=== PATIENT | female | born 2000 | race Caucasian/White ===

== ENCOUNTER 2020-10-15 14:53 | Emergency (ER) | payer OTHER ==
[~2020-10-15 14:53] MED LIST: HYDROXYZINE 10M10 MG PO; NAPROXEN500 MG PO
[2020-10-15 16:11] LABS: BASOPHIL 0.3 % (0-2); EOSINOPHIL 0.6 % (0-5); HGB 13.4 g/dl (12.5-16.0); LYMPHOCYTE 19.7 % (15-48); MCH 30.5 pg (25.0-31.0); MCHC 35.3 g/dL (32.0-36.0); MCV 86.4 fL (78.0-100.0); MONOCYTE 5.9 % (0-12); MPV 10.2 fL (6.0-9.5); NEUTROPHIL 73.2 % (41-80); NRBC 0; PLT 225 K/uL (150-400); RDW 11.5 % (11.5-14.0); WBC 7.8 K/uL (4.0-10.5)
[2020-10-15 16:38] LABS: ALBUMIN 3.2 g/dL (3.4-5.0); BILIRUBIN - TOTAL 0.3 mg/dL (0.2-1.0); BUN/CREAT RATIO (CALC) 10.4 RATIO; CREATININE 0.48 mg/dL (0.51-0.95); GLOBULIN (CALCULATION) 3.8 g/dL; POTASSIUM 3.6 mmol/L (3.5-5.1)
[2020-10-15 17:23] LABS: BILIRUBIN NEGATIVE (NEGATIVE); BLOOD NEGATIVE Ery/uL (NEGATIVE); CLARITY CLEAR (CLEAR); COLOR YELLOW (YELLOW); GLUCOSE (U) NORMAL (NORMAL); LEUKOCYTES TRACE Leu/uL (NEGATIVE); NITRITE NEGATIVE (NEGATIVE); PROTEIN NEGATIVE (NEGATIVE); UROBILINOGEN 0.2 mg/dL (0.2-1.0)
[2020-10-15 17:30] LABS: BACTERIA 2+
[2020-10-15] MEDS ORDERED: DICLEGIS DR 101 EACH PO (18:25)
== END 2020-10-15 18:49 | disposition home or self-care (01) ==
LOC: FER 14:53
PROVIDERS: Physician Assistant
DX: O21.0 Mild hyperemesis gravidarum (principal); O99.891 Other specified diseases and conditions complicating pregnancy; R82.71 Bacteriuria; Z3A.14 14 weeks gestation of pregnancy
CPT/HCPCS: 36415; 80053; 81001; 83690; 85025; J2765; J7030

== ENCOUNTER 2021-03-26 20:48 | Inpatient (IN) | payer OTHER ==
[~2021-03-26] VITALS: Ht 160 cm; Wt 93.4 kg
[~2021-03-26 20:48] MED LIST changes: +DICLEGIS DR 101 EACH PO
[2021-03-26 21:36] LABS: HCT 33.2 % (37.0-47.0); HGB 10.9 g/dl (12.5-16.0); MCH 27.5 pg (25.0-31.0); MCHC 32.8 g/dL (32.0-36.0); MCV 83.8 fL (78.0-100.0); MPV 10.7 fL (6.0-9.5); RBC 3.96 M/uL (4.20-5.40); RDW 13.1 % (11.5-14.0); WBC 9.7 K/uL (4.0-10.5)
[2021-03-26 21:37] LABS: BILIRUBIN NEGATIVE (NEGATIVE); BLOOD NEGATIVE Ery/uL (NEGATIVE); CLARITY CLEAR (CLEAR); COLOR YELLOW (YELLOW); GLUCOSE (U) NORMAL (NORMAL); LEUKOCYTES NEGATIVE Leu/uL (NEGATIVE); NITRITE NEGATIVE (NEGATIVE); PROTEIN NEGATIVE (NEGATIVE); SPECIFIC GRAVITY <=1.005 (1.001-1.030); UROBILINOGEN 0.2 mg/dL (0.2-1.0); pH 6.5 (5.0-9.0)
[2021-03-26 21:41] LABS: AMPHETAMINES NEGATIVE (NEGATIVE); BARBITURATES NEGATIVE (NEGATIVE); ECSTASY (MDMA) NEGATIVE (NEGATIVE); MARIJUANA (THC) NEGATIVE (NEGATIVE); METHADONE NEGATIVE (NEGATIVE); OPIATES NEGATIVE (NEGATIVE); OXYCODONE NEGATIVE (NEGATIVE)
[2021-03-26 21:54] LABS: ALBUMIN 2.5 g/dL (3.4-5.0); BILIRUBIN - TOTAL 0.2 mg/dL (0.2-1.0); BUN/CREAT RATIO (CALC) 12.5 RATIO; CREATININE 0.4 mg/dL (0.51-0.95); GLOBULIN (CALCULATION) 3.9 g/dL; POTASSIUM 3.6 mmol/L (3.5-5.1); TOTAL PROTEIN 6.4 g/dL (6.4-8.2)
[2021-03-28 17:16] LABS: HCT 30.6 % (37.0-47.0); MCH 27.7 pg (25.0-31.0); MCHC 32.7 g/dL (32.0-36.0); MCV 84.8 fL (78.0-100.0); MPV 10.5 fL (6.0-9.5); RBC 3.61 M/uL (4.20-5.40); RDW 13.3 % (11.5-14.0)
== END 2021-03-29 16:52 | disposition home or self-care (01) | DRG 806 ==
LOC: FOD 20:48 → FOB 20:49 → FOD 20:49 → FOB 03-29 16:52
PROVIDERS: Obstetrics & Gynecology; ADMIT Specialist
PROC: 10E0XZZ Delivery of Products of Conception, External Approach (ICD-10-PCS; principal; 2021-03-28)
PROC: 3E0P7VZ Introduction of Hormone into Female Reproductive, Via Natural or Artificial Opening (ICD-10-PCS; 2021-03-28)
DX: O41.03X0 Oligohydramnios, third trimester, not applicable or unspecified (principal); D62 Acute posthemorrhagic anemia; Z37.0 Single live birth; O99.02 Anemia complicating childbirth; Z3A.37 37 weeks gestation of pregnancy; Z20.822 Contact with and (suspected) exposure to COVID-19; O99.214 Obesity complicating childbirth; O24.429 Gestational diabetes mellitus in childbirth, unspecified control
CPT/HCPCS: 36415; 80053; 80305; 81003; 82009; 82947; 82962; 86850; 86900; 86901; J7120; J7121; U0002